=== PATIENT | female | born 1950 | race Caucasian/White ===

== ENCOUNTER 2023-06-03 20:00 | Outpatient (CLI) | payer OTHER, SELFPAY | END 2023-06-03 20:01 | disposition home or self-care (01) | LOC: SLEEP 06-04 06:22 | PROVIDERS: PCP Family Medicine Adult Medicine; Visit Provider Electrodiagnostic Medicine | DX: G47.10 Hypersomnia, unspecified (principal); G47.33 Obstructive sleep apnea (adult) (pediatric); G47.36 Sleep related hypoventilation in conditions classified elsewhere | CPT/HCPCS: 95810 ==

== ENCOUNTER 2023-08-27 17:28 | Observation (INO) | payer MEDICARE, SELFPAY ==
[2023-08-27] VITALS (11 sets, daily range): BP systolic 115–145; BP diastolic 48–67; PULSE 73–84; RESP 16–17; TEMP 36.7; O2SAT 90–96; BMI 30.9
--- NOTE | 2023-08-27 17:36 | XRR_ITS ---
PROCEDURE INFORMATION: Exam: XR Chest Exam date and time: 08/27/2023 5:48 PM Age: 72 years old Clinical indication: Shortness of breath; Additional info: Fever TECHNIQUE: Imaging protocol: Radiologic exam of the chest. Views: 1 view. COMPARISON: No relevant prior studies available. FINDINGS: Lungs: The lungs are clear. No pulmonary consolidation. Pleural spaces: No pleural effusion or pneumothorax. Heart/Mediastinum: Heart size is within normal limits. Vasculature: Atherosclerotic calcifications of the aorta are noted. Bones/joints: No acute osseous abnormalities are seen. XR/XR chest 1V portable [id number] IMPRESSION: No acute cardiopulmonary disease.
--- NOTE | 2023-08-27 17:44 | ECG_ITS ---
[facility] Test Date: 2023-08-27 Pat Name: Coty Huddleston Department: Room: 251 Gender: Female Manager Environmental Affairs: : 1950 Requested By: Blanca Thomason Order Number: [id number] Scottie MD: Fernando Meraz M.D. Measurements Intervals [place] Rate: 81 P: 19 UT: 151 QRS: -9 QRSD: 92 T: 3 QT: 337 QTc: 392 Interpretive Statements SINUS RHYTHM LOW QRS VOLTAGE IN PRECORDIAL LEADS [QRS DEFLECTION < 1.0 mV IN CHEST LEADS] POSSIBLE RIGHT VENTRICULAR CONDUCTION DELAY [RSR (QR) IN V1/V2] POSSIBLE ANTERIOR MYOCARDIAL INFARCTION , PROBABLY OLD [30 ms Q WAVE IN V3/V4, OR R < 0.2 mV IN V4] No previous ECG available for comparison Electronically Signed On 08-28-2023 7:01:59 CDT by Fernando Meraz M.D. [id number]
[2023-08-27 17:47] LABS: Basophils % 0.5 %; Eosinophils # 0.3 10^3/uL (0.0-0.8); Eosinophils % 3.3 %; Hematocrit 30.5 % (36-47); Lymphocytes % 12.5 %; Mean Corpuscular HGB Conc 31.8 g/dL (30-55); Mean Corpuscular Hemoglobin 29.8 pg (27-33); Mean Corpuscular Volume 93.6 fl (85-98); Mean Platelet Volume 8.8 fL (7.4-10.4); Monocytes # 0.8 10^3/uL (0.2-0.9); Monocytes % 10.2 %; Neutrophils # 5.83 10^3/uL (1.8-7.7); Neutrophils % 73.1 %; Nucleated Red Blood Cells % 0 %; Platelet Count 220 10^3/cmm (157-399); Red Blood Count 3.26 10^6/uL (3.85-5.65); Red Cell Distribution Width 13.6 % (12.1-15.1); White Blood Count 7.97 10^3/uL (3.29-11.43)
--- NOTE | 2023-08-27 17:48 | ED_ITS ---
HPI - Altered Mental Status 2 General: Chief Complaint: Altered Mental Status Stated Complaint: ams Time Seen by Provider: 08/27/23 17:32 Source: patient and EMS Mode of arrival: EMS Limitations: no limitations History of Present Illness: 72-year-old female who is here from home for concerns of some slight confusion along with some hypoxia as well. Patient had a knee replacement on her left knee on Thursday supposed with low-grade fevers at home she is afebrile here. She denies any cough or shortness of breath but is requiring 4 L of oxygen here states she only wears oxygen at night not typically during the day. He does have some pain in that left knee denies any drainage has some slight redness Review of Systems 2 Const: Denies: body aches or change in appetite ENMT: Denies: throat pain or dental pain Card: Denies: chest pain Resp: Reports: dyspnea GI: Denies: abdominal pain, nausea, vomiting or diarrhea : Denies: dysuria Musc: Denies: neck pain or back pain Skin/Breast: Denies: rash Neuro: Reports: confusion; Denies: headache(s) PFSH ED 2 PFSH: Medical History Insomnia Urge incontinence Diverticulitis CAD (coronary artery disease) HTN (hypertension) with goal to be determined Hypothyroid High cholesterol Meniere disease Bursitis Normal colonoscopy Surgical History History of bladder suspension procedure prolapsed uterus S/P removal of right ovary History of ankle surgery Family History (Updated 10/29/22 @ 14:29 by Libia Crawford LPN) Father Diabetes Stroke Mother FH: mental illness Social History Smoking and tobacco/nicotine status: former use of tobacco/nicotine Quit status (tobacco/nicotine): has quit using Second hand smoke exposure: No Alcohol intake: current Alcohol intake frequency: few times a month Alcohol type: beer Substance/Drug Use: current Substance/Drug use frequency: daily Physical Exam 2 Const: COMMON NORMALS: patient oriented x3 HENMT: COMMON NORMALS: normocephalic and atraumatic HEAD & SCALP: n ormocephalic and atraumatic Eye: COMMON NORMALS: conjunctivae normal CONJUNCTIVA: Yes conjunctivae normal Neck/C-Spine: COMMON NORMALS: full ROM and supple Chest: COMMONS NORMALS: normal inspection of the chest and normal palpation of entire chest wall Resp: COMMON NORMALS: normal respiratory effort, No retractions, No use of accessory muscles and clear to auscultation bilaterally AUSCULTATION: clear to auscultation bilaterally Cardio: COMMON NORMALS: regular rate, regular rhythm and No murmurs present (Cardio) RATE: regular rate RHYTHM: regular rhythm GI: COMMON NORMALS: Normal to inspection, nondistended, normoactive bowel sounds present, Soft to palpation, non-tender and no masses PALPATION: Yes Soft to palpation Extremity: COMMON NORMALS: full ROM NARRATIVE EXTREMITY EXAM: Incision to left knee is clean dry intact slight erythema noted Neuro: COMMON NORMALS: patient oriented x3, moves all extremities and no focal motor deficits Psych: COMMON NORMALS: mental status grossly normal, Normal thought process present and cooperative THOUGHT PROCESS: Normal thought process present Skin: COMMON NORMALS: no rashes or lesions noted and no wounds GENERAL SKIN EXAM: no rashes or lesions noted Course 2 Vital Signs: Vital signs: Vital Signs Temperature 98.0 F 08/27/23 17:29 Pulse Rate 84 08/27/23 17:29 Respiratory Rate 17 08/27/23 18:35 Blood Pressure 121/67 08/27/23 17:29 Pulse Oximetry 92 08/27/23 17:29 Oxygen Delivery Me thod Nasal Cannula 08/27/23 17:29 Oxygen Flow Rate 4 08/27/23 17:29 MDM - Altered Mental Status Medical Decision Making Patient presents here with confusion at home she has not been confused here she can answer my questions appropriately she is short of breath and hypoxic here x- ray showed pulmonary edema versus a pneumonia her BNP is elevated likely pulmonary edema did start antibiotics and blood cultures will give Lasix she has no signs of postop knee infection spoke to the hospitalist will admit. Medical Records I reviewed the patient's medical records. Lab Data I reviewed the patient's lab results. 08/27/23 17:34 08/27/23 17:35 Radiology Impressions Chest X-Ray 08/27/23 17:36 IMPRESSION: No acute cardiopulmonary disease. Chest CTA 08/27/23 17:54 IMPRESSION: 1. No evidence of pulmonary embolism. 2. Mild diffuse interlobular septal thickening and ground-glass opacification . Nonspecific finding likely reflecting pulmonary edema. Atypical infection or chronic changes can have this appearance. 3. 5 mm right apical subpleural nodule. See comments section for Fleischner recommendations. 4. Other nonemergent findings above. COMMENTS: For patients at low risk (minimal or absent history of smoking and of other known risk factors), no routine follow-up is indicated. For patients at high risk (history of smoking or of other known risk factors), consider optional CT Chest at 12 months. (Reference: Jose) REFERENCES: Jose Sepulveda, et al. Guidelines for Management of Incidental Pulmonary Nodules Detected on CT Images: From the Fleischner Society 2017. Radiology. 2017;284(1):228-243. Head CT 08/27/23 17:54 IMPRESSION: No acute intracranial abnormality on CT. Further evaluation with MRI as clinically warranted if there is persistent clinical suspicion for early stroke or other significant intracranial abnormality. Laboratory Results WBC 7.97 10^3/uL (3.29-11.43) 08/27/23 17:34 RBC 3.26 10^6/uL (3.85-5.65) L 08/27/23 17:34 Hgb 9.70 g/dL (11.27-16.99) L 08/27/23 17:34 Hct 30.5 % (36-47) L 08/27/23 17:34 MCV 93.6 fl (85-98) 08/27/23 17:34 MCH 29.8 pg (27-33) 08/27/23 17:34 MCHC 31.8 g/dL (30-55) 08/27/23 17:34 RDW 13.6 % (12.1-15.1) 08/27/23 17:34 Plt Count 220 10^3/cmm (157-399) 08/27/23 17:34 MPV 8.8 fL (7.4-10.4) 08/27/23 17:34 Neut % (Auto) 73.1 % 08/27/23 17:34 Lymph % (Auto) 12.5 % 08/27/23 17:34 [place] % (Auto) 10.2 % 08/27/23 17:34 Eos % (Auto) 3.3 % 08/27/23 17:34 Baso % (Auto) 0.5 % 08/27/23 17:34 Neut # (Auto) 5.83 10^3/uL (1.8-7.7) 08/27/23 17:34 Lymph # (Auto) 1.0 10^3/uL (0.8-4.8) 08/27/23 17:34 [place] # (Auto) 0.8 10^3/uL (0.2-0.9) 08/27/23 17:34 Eos # (Auto) 0.3 10^3/uL (0.0-0.8) 08/27/23 17:34 Baso # (Auto) 0.0 10^3/uL (0.0-0.1) 08/27/23 17:34 Nucleated RBC % (auto) 0 % 08/27/23 17:34 Nucleated RBCs # 0.0 /100WBC 08/27/23 17:34 ESR 26 mm/hr (0-15) H 08/27/23 17:34 PT 13.70 SECONDS (12.1-14.9) 08/27/23 17:35 INR 1.02 (0.8-1.2) 08/27/23 17:35 Sodium 135 mmol/L (136-145) L 08/27/23 17:35 Potassium 4.9 mmol/L (3.5-5.1) 08/27/23 17:35 Chloride 98 mmol/L (98-107) 08/27/23 17:35 Carbon Dioxide 29 mmol/L (22-29) 08/27/23 17:35 Anion Gap 12.9 (5-19) 08/27/23 17:35 BUN 26 mg/dL (8-23) H 08/27/23 17:35 Creatinine 0.9 mg/dL (0.5-0.9) 08/27/23 17:35 GFR Calculation Not Reportable 08/27/23 17:35 Glucose 93 mg/dL (65-115) 08/27/23 17:35 Calculated Osmolality 284 mOsm/kg (285-295) L 08/27/23 17:35 Lactic Acid 0.7 mmol/L (0.5-2.2) 08/27/23 17:35 Calcium 8.7 mg/dL (8.5-10.5) 08/27/23 17:35 Total Bilirubin 0.7 mg/dL (0.15-1.2) 08/27/23 17:35 AST 20 U/L (0-32) 08/27/23 17:35 ALT 12 U/L (0-33) 08/27/23 17:35 Alkaline Phosphatase 69 U/L (35-105) 08/27/23 17:35 C-Reactive Protein 99.0 mg/L (0.0-4.9) H 08/27/23 17:35 NT-Pro-B Natriuret Pep 4074 pg/mL (0-125) H 08/27/23 17:35 Total Protein 6.5 g/dL (6.6-8.7) L 08/27/23 17:35 Albumin 3.5 g/dL (3.5-5.2) 08/27/23 17:35 Globulin 3.0 g/dL (1.3-4.6) 08/27/23 17:35 All radiology interpretation(s) finalized by discharge EKG Data EKG 1: I personally reviewed and interpreted this EKG as follows: EKG interpretation date: 08/27/23 EKG interpretation time: 17:44 Interpretation: nsr hr [address] elevation qrs 92 qtc 374 Discharge Plan Discharge Condition: Stable Prescriptions: No Action metoprolol succinate 25 mg tablet extended release 24 hr 25 mg PO DAILY aspirin 81 mg tablet,delayed release (DR/EC) 81 mg PO DAILY ranolazine 500 mg tablet extended release 12 hr 500 mg PO BID lisinopril 10 mg tablet 10 mg PO DAILY escitalopram oxalate 20 mg tablet 30 mg PO DAILY oxybutynin chloride 5 mg tablet extended release 24hr 5 mg PO DAILY atorvastatin 20 mg tablet 20 mg PO DAILY levothyroxine 100 mcg tablet 100 mcg PO DAILY esomeprazole magnesium 20 mg capsule,delayed release(DR/EC) 20 mg PO DAILY PRN cetirizine [Aller-Jaki] 10 mg tablet 10 mg PO DAILY PRN acetaminophen [Tylenol Extra Strength] 500 mg tablet 500 mg PO Q6H PRN Centrum Silver Women 8 mg iron-400 mcg-50 mcg tablet 1 tab PO DAILY ijjltozy-ymii-alcne-oreg-capry 100 mg-150 mg- 50 mg-150 mg capsule PO magnesium citrate 100 mg capsule 100 mg PO DAILY doxepin 25 mg capsule 25 mg PO .qhs PRN (Reason: sleep) Qty: 30 3RF Referrals: Obdulio Alvarez MD [Primary Care Provider] - Patient Instructions: Altered Mental Status (ED) Coding Level of Care Code ED [employer] for [employer] José
--- NOTE | 2023-08-27 17:54 | CTR_ITS ---
PROCEDURE INFORMATION: Exam: CT Head Without Contrast Exam date and time: 08/27/2023 6:46 PM Age: 72 years old Clinical indication: Altered mental status/memory loss; Additional info: AMS TECHNIQUE: Imaging protocol: Computed tomography of the head without contrast. Radiation optimization: All CT scans at this facility use at least one of these dose optimization techniques: automated exposure control; mA and/or kV adjustment per patient size (includes targeted exams where dose is matched to clinical indication); or iterative reconstruction. COMPARISON: No relevant prior studies available. RADIATION DOSE METRICS: Total DLP (mGy-cm): 1158.48 FINDINGS: Brain: Mild diffuse cerebral parenchymal atrophy and chronic microvascular parenchymal change. No hemorrhage. Unremarkable white matter. No mass effect. Cerebral ventricles: No ventriculomegaly. Paranasal sinuses: Visualized sinuses are unremarkable. No fluid levels. Mastoid air cells: Visualized mastoid air cells are well aerated. Bones: Unremarkable. No acute fracture. Soft tissues: Unremarkable. CT/CT head wo con* [id number] IMPRESSION: No acute intracranial abnormality on CT. Further evaluation with MRI as clinically warranted if there is persistent clinical suspicion for early stroke or other significant intracranial abnormality.
--- NOTE | 2023-08-27 17:54 | CTR_ITS ---
PROCEDURE INFORMATION: Exam: CTA Chest With Contrast Exam date and time: 08/27/2023 6:51 PM Age: 72 years old Clinical indication: Dyspnea; Additional info: SOB TECHNIQUE: Imaging protocol: Computed tomographic angiography of the chest with contrast. Exam focused on the arteries. 3D rendering (Not supervised by radiologist): MIP and/or 3D reconstructed images were created by the technologist. Radiation optimization: All CT scans at this facility use at least one of these dose optimization techniques: automated exposure control; mA and/or kV adjustment per patient size (includes targeted exams where dose is matched to clinical indication); or iterative reconstruction. Contrast material: OMNI 350; Contrast volume: 92 ml; Contrast route: INTRAVENOUS (IV); COMPARISON: CR (CHEST, ) 08/27/2023 5:48 PM RADIATION DOSE METRICS: Total DLP (mGy-cm): 485.85 FINDINGS: Limitations: Moderate breathing artifact. Pulmonary arteries: Pulmonary arteries are adequately evaluated to the proximal segmental level. Breathing artifact limits more distal evaluation. No filling defects are identified to suggest pulmonary artery embolism. Main pulmonary artery is normal in size. There is no evidence of right heart strain. Aorta: Atherosclerotic calcifications of the aorta are present. No aneurysm is identified. Lungs: Moderate dependent changes in the posterior lower lobes. Evaluation of the pulmonary parenchyma is limited breathing artifact. Mild diffuse interlobular septal thickening and ground-glass opacification . 5 mm right apical subpleural nodule. 5 mm angular nodule abutting the minor fissure most consistent with an intra fissural lymph node. Pleural spaces: No pleural effusion or pneumothorax. Heart: Mild cardiomegaly. No pericardial effusion or pericardial thickening. Coronary arteries: No coronary artery calcification. Lymph nodes: Multiple prominent mediastinal and bilateral hilar lymph nodes. Bones/joints: No acute osseous abnormalities are seen. Soft tissues: Bilateral breast prostheses. The soft tissues are otherwise within normal limits. CT/CT angio chest PE protcl [id number] IMPRESSION: 1. No evidence of pulmonary embolism. 2. Mild diffuse interlobular septal thickening and ground-glass opacification . Nonspecific finding likely reflecting pulmonary edema. Atypical infection or chronic changes can have this appearance. 3. 5 mm right apical subpleural nodule. See comments section for Fleischner recommendations. 4. Other nonemergent findings above. COMMENTS: For patients at low risk (minimal or absent history of smoking and of other known risk factors), no routine follow-up is indicated. For patients at high risk (history of smoking or of other known risk factors), consider optional CT Chest at 12 months. (Reference: Jose) REFERENCES: Jose Sepulveda, et al. Guidelines for Management of Incidental Pulmonary Nodules Detected on CT Images: From the Fleischner Society 2017. Radiology. 2017;284(1):228-243.
[2023-08-27 18:00] LABS: INR 1.02 (0.8-1.2)
[2023-08-27 18:08] LABS: Erythrocyte Sedimentation Rate 26 mm/hr (0-15)
[2023-08-27 18:14] LABS: Alanine Aminotransferase 12 U/L (0-33); Albumin Level 3.5 g/dL (3.5-5.2); Alkaline Phosphatase 69 U/L (35-105); Anion Gap 12.9 (5-19); Aspartate Amino Transferase 20 U/L (0-32); Blood Urea Nitrogen 26 mg/dL (8-23); Calcium 8.7 mg/dL (8.5-10.5); Carbon Dioxide 29 mmol/L (22-29); Chloride 98 mmol/L (98-107); Creatinine Clr Calc Pharmacy 59.2644; Glucose 93 mg/dL (65-115); Osmolality Calculated 284 mOsm/kg (285-295); Potassium 4.9 mmol/L (3.5-5.1); Sodium 135 mmol/L (136-145); Total Bilirubin 0.7 mg/dL (0.15-1.2); Total Protein 6.5 g/dL (6.6-8.7)
[2023-08-27 18:15] LABS: Lactic Sepsis W/Reflex 0.7 mmol/L (0.5-2.2)
[2023-08-27] MEDS: morphine 4 mg/mL SDV 1 mL IVP ×2 (18:35→22:19)
[2023-08-27] MEDS: ondansetron 2 mg/ML SDV 2 mL 4 MG IVP ×2 (18:35→22:19)
[2023-08-27] MEDS: iohexol 350 mg/mL 500 mL Btl (per mL) IV (19:00)
[2023-08-27 20:05] LABS: NT Pro B Type Natriuretic Pept 4074 pg/mL (0-125)
[2023-08-27] MEDS: azithromycin 500 MG in sodium chloride 0.9% 250 ML 250 MG IV (20:08)
[2023-08-27] MEDS: cefTRIAXone 1,000 mg SDV 1000 MG IVP (20:08)
[2023-08-27] MEDS: FUROsemide 10 mg/mL SDV 4mL 40 MG IVP (20:58)
--- NOTE | 2023-08-27 21:01 | USR_ITS ---
PROCEDURE INFORMATION: Exam: US Duplex Lower Extremity Veins, Bilateral Exam date and time: 08/27/2023 9:49 PM Age: 72 years old Clinical indication: Pain; Leg, upper and leg, lower; Prior surgery; Surgery date: 3-7 days post-operative; Surgery type: Left total knee; Additional info: Swelling TECHNIQUE: Imaging protocol: Real-time duplex ultrasound of the bilateral extremities with 2-D moreno scale, color Doppler flow and spectral waveform analysis including responses to compression and other maneuvers (when performed) with image documentation. Complete exam focused on the lower extremity veins. COMPARISON: CT knee LT wo con* [id number] 08/27/2023 9:43 PM FINDINGS: Right deep veins: Unremarkable. The common femoral, femoral, proximal profunda femoral and popliteal and posterior tibial veins are patent without thrombus. Normal Doppler waveforms. Normal compressibility and/or augmentation response. Left deep veins: Unremarkable. The common femoral, femoral, proximal profunda femoral and popliteal and posterior tibial veins are patent without thrombus. Normal Doppler waveforms. Normal compressibility and/or augmentation response. Superficial veins: Greater saphenous veins at the saphenofemoral junctions are patent bilaterally without thrombus. Soft tissues: Unremarkable. US/[place] [id number] IMPRESSION: No evidence of deep vein thrombosis in the examined venous segments of the right and left lower extremities.
--- NOTE | 2023-08-27 21:03 | P.HP_ITS ---
Providers/Chief Complaint 2 Primary Care Provider: Obdulio Alvarez MD Chief Complaint: ams History of Present Illness Coty Huddleston is a 72 year old female who recently had left knee surgery at [facility], presented today with chief complaint of altered mental status. Daughter was concerned if she had altered mental status with confusion secondary to use of opioids. When patient was brought in she was hypoxic required 4 L of nasal cannula to keep her oxygen saturation above 90%, x-ray showed congestive heart failure related pulm edema, CTA rule out PE, patient is afebrile, she has been given ceftriaxone azithromycin along Lasix. Patient is not able to recall events from home but stating there is no active chest pain shortness of breath or confusion she is not endorsing any knee pain at this point, Solano catheter has been placed. I have requested CT scan of left knee with contrast and venous Doppler lower extremity Currently at the time of evaluation she is normotensive with 3 L of nasal cannula saturating 95% Review of Systems 2 Const: Reports: fever(s) and chills Eyes: Denies: change in vision ENMT: Denies: throat pain Card: Denies: chest pain Resp: Denies: dyspnea GI: Denies: abdominal pain : Denies: flank pain Musc: Reports: extremity pain and joint pain; Denies: neck pain Skin/Breast: Reports: rash Medications/Allergies Home Medications Medication Instructions Recorded Confirmed Last Taken Type acetaminophen 500 mg tablet 500 mg PO Q6H PRN 10/29/22 10/29/22 Unknown History (Tylenol Extra Strength) aspirin 81 mg tablet,delayed 81 mg PO DAILY 10/29/22 10/29/22 Unknown History release atorvastatin 20 mg tablet 20 mg PO DAILY 10/29/22 10/29/22 Unknown History cetirizine 10 mg tablet (Aller-Jaki) 10 mg PO DAILY PRN 10/29/22 10/29/22 Unknown History escitalopram oxalate 20 mg tablet 30 mg PO DAILY 10/29/22 10/29/22 Unknown History esomeprazole magnesium 20 mg 20 mg PO DAILY PRN 10/29/22 10/29/22 Unknown History capsule,delayed release levothyroxine 100 mcg tablet 100 mcg PO DAILY 10/29/22 10/29/22 Unknown History lisinopril 10 mg tablet 10 mg PO DAILY 10/29/22 10/29/22 Unknown History magnesium citrate 100 mg capsule 100 mg PO DAILY 10/29/22 10/29/22 Unknown History metoprolol succinate 25 mg 25 mg PO DAILY 10/29/22 10/29/22 Unknown History tablet,extended release 24 hr kiwjnudr-xbtv-kpbz 8 mg-folic 400 1 tab PO DAILY 10/29/22 10/29/22 Unknown History mcg-K 50 mcg-lutein 300 mcg tablet (Centrum Silver Women) oxybutynin chloride 5 mg 5 mg PO DAILY 10/29/22 10/29/22 Unknown History tablet,extended release 24 hr ranolazine 500 mg tablet,extended 500 mg PO BID 10/29/22 10/29/22 Unknown History release,12 hr turmeric 100 mg-marcos 150 cap PO 10/29/22 10/29/22 Unknown History mg-olive 50 mg-oreg 150 mg-capryl capsule doxepin 25 mg capsule 25 mg PO .qhs PRN sleep #30 caps 12/03/22 Unknown Rx Allergies Allergy/AdvReac Type Severity Reaction Status Date / Time phentermine Allergy Unknown Verified 08/27/23 17:48 arithromycin Allergy makes her Uncoded 08/27/23 17:47 throw up morphine Allergy vomit Uncoded 08/27/23 17:47 PFSH Acute 2 PFSH: Medical History Insomnia Urge incontinence Diverticulitis CAD (coronary artery disease) HTN (hypertension) with goal to be determined Hypothyroid High cholesterol Meniere disease Bursitis Normal colonoscopy Surgical History History of bladder suspension procedure prolapsed uterus S/P removal of right ovary History of ankle surgery Family History Father Diabetes Stroke Mother FH: mental illness Social History Smoking and tobacco/nicotine status: former use of tobacco/nicotine Quit status (tobacco/nicotine): has quit using Second hand smoke exposure: No Alcohol intake: current Alcohol intake frequency: few times a month Alcohol type: beer Substance/Drug Use: current Substance/Drug use frequency: daily Vitals/I&O/Wt Last Vital Signs Temp 98.0 F 08/27/23 17:29 Pulse 84 08/27/23 17:29 Resp 17 08/27/23 18:35 BP 121/67 08/27/23 17:29 Pulse Ox 92 08/27/23 17:29 O2 Del Method Nasal Cannula 08/27/23 17:29 O2 Flow Rate 4 08/27/23 17:29 Weight last 48 hrs Weight 81.647 kg Physical Exam 2 Narrative: Patient currently on 3 L nasal cannula Normotensive Mild signs of fluid overload GCS 15 Left knee recent surgical scar mirela present No active sign of cellulitis Patient is awake and alert Nonfocal neuroexam S1, S2 Abdomen soft Data 08/27/23 17:34 08/27/23 17:35 A&P Assessment and plan (1) New onset of congestive heart failure: (2) HTN (hypertension) with goal to be determined: (3) Hypothyroid: (4) Meniere disease: (5) Urge incontinence: (6) Insomnia: (7) Hypoxia: (8) AMS (altered mental status): Plan Acute hypoxia related to new onset CHF Requested echo Start IV Lasix Solano catheter placed No active chest pain Requested serial troponin EKG Requested weaning oxygen to room air Currently she is on 3 L, Recent left knee surgery, will request CT scan of left knee with contrast As per the daughter there was fever at home Daughter not present at the time of evaluation Information taken from the ER physician Acute acquired pneumonia Start antibiotics ceftriaxone and doxycycline Patient is afebrile, no leukocytosis no sign of sepsis Confusion: Could be related to use of opioids NIH 0 No sign of stroke CT head unremarkable CT rule out PE Full code Cardiac Solano catheter placed DVT prophylaxis on board Attestations 2 Medical Necessity Statement*: Anticipating more than 2 midnights for management of hypoxia, altered mental status and new onset CHF Diagnoses New onset of congestive heart failure I50.9 HTN (hypertension) with goal to be determined I10 Hypothyroid E03.9 Meniere disease H81.09 Urge incontinence N39.41 Insomnia G47.00 Hypoxia R09.02 AMS (altered mental status) R41.82
[2023-08-27 21:10] LABS: Add Urine Microscopic? NO; Charge for UA Resulting for Rev
[2023-08-27 21:15] LABS: Bilirubin Urine Neg (Negative); Blood Urine Neg (Negative); Glucose Urine UA Norm (Normal); Ketones Urine 1+ (Negative); Leukocyte Esterase Urine Negative (Negative); Nitrate Urine Negative (Negative); Protein Urine Neg (Negative); Urine Appearance Clear (CLEAR); Urine Color Yellow (Yellow); Urobilinogen Urine Norm (Negative); pH Urine 5 (5-7)
--- NOTE | 2023-08-27 21:26 | CTR_ITS ---
PROCEDURE INFORMATION: Exam: CT Left Lower Extremity Without Contrast, Knee Exam date and time: 08/27/2023 9:43 PM Age: 72 years old Clinical indication: Swelling, leg or foot; Prior surgery; Surgery date: 3-7 days post-operative; Surgery type: Post op knee; Additional info: Recently surgery TECHNIQUE: Imaging protocol: CT of the left lower extremity without contrast was performed. Exam focused on the knee. Radiation optimization: All CT scans at this facility use at least one of these dose optimization techniques: automated exposure control; mA and/or kV adjustment per patient size (includes targeted exams where dose is matched to clinical indication); or iterative reconstruction. COMPARISON: CR XR knee LT 3V* [id number] 02/17/2023 12:22 PM RADIATION DOSE METRICS: Total DLP (mGy-cm): 439 FINDINGS: Tubes, catheters and devices: No evidence of arthroplasty hardware failure or loosening. No periprosthetic fracture. The right knee is partially imaged with moderate narrowing of the medial compartment. Bones/joints: Postsurgical changes in the anterior knee status post reported recent knee arthroplasty. Mild diffuse subcutaneous edema and dermal thickening likely postsurgical although reason for any evidence of cellulitis suggested. Small amount of soft tissue air in the proximal medial calf is likely an expected finding. Small joint effusion/hemarthrosis. Soft tissues: See Bones/joints finding. CT/CT knee LT wo con* [id number] IMPRESSION: 1. Soft tissue thickening around the knee likely postsurgical in the setting of reported recent arthroplasty. Clinical correlation for any evidence of superimposed cellulitis suggested as the imaging appearance could be similar. 2. No evidence of hardware failure or periprosthetic fracture. No large fluid collection or soft tissue hematoma. [id number] high-density joint effusion/hemarthrosis.
[2023-08-27 21:31] LABS: SARS Covid-2 Antigen negative (Negative)
[2023-08-27 21:38] LABS: Troponin(5th) Baseline 54 ng/L (0-10)
[2023-08-27 22:23] LABS: Thyroid Stimulating Hormone 2.24 uIU/mL (0.27-4.20)
--- NOTE | 2023-08-27 23:05 | ECG_ITS ---
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 Measurements Intervals [place] Rate: 76 P: 43 [place]: 148 QRS: -4 QRSD: 87 T: 3 QT: 380 QTc: 428 Interpretive Statements SINUS RHYTHM LOW QRS VOLTAGE IN PRECORDIAL LEADS [QRS DEFLECTION < 1.0 mV IN CHEST LEADS] POSSIBLE RIGHT VENTRICULAR CONDUCTION DELAY [RSR (QR) IN V1/V2] POSSIBLE ANTERIOR MYOCARDIAL INFARCTION , PROBABLY OLD [30 ms Q WAVE IN V3/V4, OR R < 0.2 mV IN V4] Compared to ECG 08/27/2023 17:44:00 No significant changes Electronically Signed On 08-28-2023 7:03:58 CDT by Fernando Meraz M.D. [id number]
[2023-08-27 23:25] LABS: Vitamin B12 386 pg/mL (232-1245)
[2023-08-28 00:13] LABS: Troponin 5 2HR 47.09 ng/L (0-10)
[2023-08-28 00:15] LABS: Troponin 5 2HR Delta -6.91 ABS# (0-10)
[2023-08-28] MEDS: doxycycline 100 mg Tablet PO (01:01)
[2023-08-28] MEDS: heparin 5,000 unit/mL INJ 1 mL 5000 UNIT SUBCUT (01:01)
[2023-08-28 01:02] VITALS: BMI 30.9
--- NOTE | 2023-08-28 01:24 | PC.NURSE ---
This nurse completed admission assessment and initial physical assessment. The patient is awake and opens her eyes spontaneously, can state her name and birthday and can state that she's in the hospital, although she gets confused about which hospital. Her speech is sometimes delayed and some responses need additional prompting. Admission assessment questions were answered by her daughter, who the patient currently lives with. The daughter understood all teaching and requested PT to come see the patient, as well as see about getting a CPAP shearing machine tender. Daughter states that the patient recently had a sleep study done here and was recommended a CPAP, but it hadn't been acquired yet. Daughter states the patient recently had a knee surgery at [facility] in [place]. There is a well approximated incision on the left knee covered with a strip of transparent tape. The surrounding tissue, including the posterior thigh, is bruised dark red/purple. There is non-pitting edema around the knee. The left lower extremity, from above the knee to foot, is noticeably hot in comparison with the right lower extremity. Both dorsalis pedis pulses are strong. The patient is currently saturating well on 4L nasal cannula, and does not appear short of breath. Crackles can be heard clearly in the bilateral lower lobs when listening posteriorly.
[2023-08-28 03:32] LABS: Hematocrit 32.5 % (36-47); Mean Corpuscular Hemoglobin 30.1 pg (27-33); Mean Corpuscular Volume 94.2 fl (85-98); Red Blood Count 3.45 10^6/uL (3.85-5.65); White Blood Count 9.82 10^3/uL (3.29-11.43)
[2023-08-28 03:33] LABS: Basophils # 0.1 10^3/uL (0.0-0.1); Basophils % 0.5 %; Eosinophils # 0.3 10^3/uL (0.0-0.8); Eosinophils % 2.9 %; Lymphocytes # 1.3 10^3/uL (0.8-4.8); Lymphocytes % 13.3 %; Mean Platelet Volume 8.7 fL (7.4-10.4); Monocytes % 10.2 %; Neutrophils # 7.15 10^3/uL (1.8-7.7); Neutrophils % 72.8 %; Platelet Count 308 10^3/cmm (157-399); Red Cell Distribution Width 13.6 % (12.1-15.1)
--- NOTE | 2023-08-28 03:41 | ECG_ITS ---
[facility] Test Date: 2023-08-28 Pat Name: Coty Huddleston Department: Room: 251 Gender: Female Adult Probation Officer: : 1950 Requested By: Carmella Montes Order Number: [id number] Scottie MD: Fernando Meraz M.D. Measurements Intervals [place] Rate: 95 P: 52 NV: 167 QRS: 2 QRSD: 86 T: 5 QT: 328 QTc: 413 Interpretive Statements SINUS RHYTHM LOW QRS VOLTAGE IN PRECORDIAL LEADS [QRS DEFLECTION < 1.0 mV IN CHEST LEADS] POSSIBLE RIGHT VENTRICULAR CONDUCTION DELAY [RSR (QR) IN V1/V2] POSSIBLE ANTERIOR MYOCARDIAL INFARCTION , PROBABLY OLD [30 ms Q WAVE IN V3/V4, OR R < 0.2 mV IN V4] Compared to ECG 08/27/2023 23:20:46 No significant changes Electronically Signed On 08-28-2023 7:02:25 CDT by Fernando Meraz M.D. [id number]
[2023-08-28 04:01] LABS: Troponin 5 6HR 46.92 ng/L (0-10); Troponin 5 6HR Delta -7.08 ng/L (0-12)
[2023-08-28 04:06] LABS: Sodium 136 mmol/L (136-145)
[2023-08-28 04:07] LABS: Anion Gap 19.2 (5-19); Blood Urea Nitrogen 21 mg/dL (8-23); C Reactive Protein 118.4 mg/L (0.0-4.9); Calcium 8.6 mg/dL (8.5-10.5); Carbon Dioxide 27 mmol/L (22-29); Chloride 94 mmol/L (98-107); Creatinine Clr Calc Pharmacy 53.3379; Glucose 80 mg/dL (65-115); Magnesium 2.3 mg/dL (1.7-2.3); Osmolality Calculated 284 mOsm/kg (285-295); Potassium 4.2 mmol/L (3.5-5.1)
[2023-08-28] MEDS: aspirin 81 mg EC Tablet PO (08:13)
[2023-08-28] MEDS: levothyroxine 100 mcg Tablet PO (08:14)
[2023-08-28] MEDS: sennosides-docusate Tablet 1 TAB PO (08:14)
[2023-08-28] MEDS: ranolazine (12HR) 500 mg Tablet PO (08:14)
[2023-08-28] MEDS: cefTRIAXone 1,000 MG in sodium chloride 0.9% (plus) 50 ML 100 MG IV (08:14)
[2023-08-28 08:38] VITALS: BP 135/77; PULSE 88; RESP 18; TEMP 37.1; O2SAT 97
[2023-08-28 08:50] VITALS: PULSE 79; O2SAT 94
[2023-08-28] MEDS: lisinopril 10 mg Tablet PO (09:33)
[2023-08-28] MEDS: HYDROcodone-acetaminophen 5-325 mg Tablet 1 TAB PO ×2 (09:33→13:43)
[2023-08-28] MEDS: metoprolol succinate ER (24 HR) 25 mg Tablet PO (09:33)
[2023-08-28] MEDS: FUROsemide 10 mg/mL SDV 10mL 40 MG IVP (09:33)
--- NOTE | 2023-08-28 10:26 | PM.DCS ---
Discharge Providers Date of Admission: 08/27/23 20:15 Date of Discharge: August 28, 2023 Attending Provider at Admission: Carmella Montes MD Attending Provider at Discharge: Carmella Montes MD Primary Care Provider: Obdulio Alvarez MD Diagnoses at Discharge Discharge Diagnosis (1) New onset of congestive heart failure: Status: Acute (2) HTN (hypertension) with goal to be determined: Status: Acute (3) Hypothyroid: Status: Acute (4) Meniere disease: Status: Acute (5) Urge incontinence: Status: Acute (6) Insomnia: Status: Acute (7) Hypoxia: Status: Acute (8) AMS (altered mental status): Status: Acute Reason for Visit Reason for Visit: ams Hospital Course Hospital Course 72 YO female with recent knee surgery came in wit CC of AMS which resolved in the ER, NIh 0, was deemed secondary to use of opiates and new oxygen requirement of 2 L for acute chf with underlying sleep apnea, echo revelaed preserved ef. Pt has sleep apnea and also completed sleep study which was ordred by Dr. Riggins. We would add levofloxacin and lasic along potassium at discharge. Pt has appointment for OP PT. [place] will be dc'd She is going home with stable hemodynamics CT left knee showed post surgical changes Physical Exam Narrative: awake alert GCS 15 S1 S2 ABD soft Discharge Data Studies Completed and Pending Completed Studies During Hospitalization Category Date Time Status CT head wo con* [id number] Stat Cat Scan 08/27/23 17:[address] knee LT wo con* [id number] Stat Cat Scan 08/27/23 21:26 Completed CTA chest [CT angio chest PE protcl [id number]] Stat Cat Scan 08/27/23 17:54 Completed XR chest 1V portable [id number] Stat Exams 08/27/23 17:36 [place] [id number] Routine Ultrasound 08/27/23 21:01 Completed Pending at discharge Category Date Time Status CV. echo complete* [id number] Routine Ultrasound 08/28/23 23:37 Taken Radiology Impressions Chest X-Ray 08/27/23 17:36 IMPRESSION: No acute cardiopulmonary disease. Chest CTA 08/27/23 17:54 IMPRESSION: 1. No evidence of pulmonary embolism. 2. Mild diffuse interlobular septal thickening and ground-glass opacification . Nonspecific finding likely reflecting pulmonary edema. Atypical infection or chronic changes can have this appearance. 3. 5 mm right apical subpleural nodule. See comments section for Fleischner recommendations. 4. Other nonemergent findings above. COMMENTS: For patients at low risk (minimal or absent history of smoking and of other known risk factors), no routine follow-up is indicated. For patients at high risk (history of smoking or of other known risk factors), consider optional CT Chest at 12 months. (Reference: Jose) REFERENCES: Jose Sepulveda, et al. Guidelines for Management of Incidental Pulmonary Nodules Detected on CT Images: From the Fleischner Society 2017. Radiology. 2017;284(1):228-243. Head CT 08/27/23 17:54 IMPRESSION: No acute intracranial abnormality on CT. Further evaluation with MRI as clinically warranted if there is persistent clinical suspicion for early stroke or other significant intracranial abnormality. Venous Duplex 08/27/23 21:01 IMPRESSION: No evidence of deep vein thrombosis in the examined venous segments of the right and left lower extremities. Knee CT 08/27/23 21:26 IMPRESSION: 1. Soft tissue thickening around the knee likely postsurgical in the setting of reported recent arthroplasty. Clinical correlation for any evidence of superimposed cellulitis suggested as the imaging appearance could be similar. 2. No evidence of hardware failure or periprosthetic fracture. No large fluid collection or soft tissue hematoma. [id number] high-density joint effusion/hemarthrosis. Laboratory Results WBC 9.82 10^3/uL (3.29-11.43) 08/28/23 03:10 RBC 3.45 10^6/uL (3.85-5.65) L 08/28/23 03:10 Hgb 10.40 g/dL (11.27-16.99) L 08/28/23 03:10 Hct 32.5 % (36-47) L 08/28/23 03:10 MCV 94.2 fl (85-98) 08/28/23 03:10 MCH 30.1 pg (27-33) 08/28/23 03:10 MCHC 32.0 g/dL (30-55) 08/28/23 03:10 RDW 13.6 % (12.1-15.1) 08/28/23 03:10 Plt Count 308 10^3/cmm (157-399) D 08/28/23 03:10 MPV 8.7 fL (7.4-10.4) 08/28/23 03:10 Neut % (Auto) 72.8 % 08/28/23 03:10 Lymph % (Auto) 13.3 % 08/28/23 03:10 [place] % (Auto) 10.2 % 08/28/23 03:10 Eos % (Auto) 2.9 % 08/28/23 03:10 Baso % (Auto) 0.5 % 08/28/23 03:10 Neut # (Auto) 7.15 10^3/uL (1.8-7.7) 08/28/23 03:10 Lymph # (Auto) 1.3 10^3/uL (0.8-4.8) 08/28/23 03:10 [place] # (Auto) 1.0 10^3/uL (0.2-0.9) H 08/28/23 03:10 Eos # (Auto) 0.3 10^3/uL (0.0-0.8) 08/28/23 03:10 Baso # (Auto) 0.1 10^3/uL (0.0-0.1) 08/28/23 03:10 Nucleated RBC % (auto) 0 % 08/27/23 17:34 Nucleated RBCs # 0.0 /100WBC 08/27/23 17:34 ESR 26 mm/hr (0-15) H 08/27/23 17:34 PT 13.70 SECONDS (12.1-14.9) 08/27/23 17:35 INR 1.02 (0.8-1.2) 08/27/23 17:35 Sodium 136 mmol/L (136-145) 08/28/23 03:10 Potassium 4.2 mmol/L (3.5-5.1) 08/28/23 03:10 Chloride 94 mmol/L (98-107) L 08/28/23 03:10 Carbon Dioxide 27 mmol/L (22-29) 08/28/23 03:10 Anion Gap 19.2 (5-19) H 08/28/23 03:10 BUN 21 mg/dL (8-23) 08/28/23 03:10 Creatinine 1.0 mg/dL (0.5-0.9) H 08/28/23 03:10 GFR Calculation Not Reportable 08/28/23 03:10 Glucose 80 mg/dL (65-115) 08/28/23 03:10 Calculated Osmolality 284 mOsm/kg (285-295) L 08/28/23 03:10 Lactic Acid 0.7 mmol/L (0.5-2.2) 08/27/23 17:35 Calcium 8.6 mg/dL (8.5-10.5) 08/28/23 03:10 Magnesium 2.3 mg/dL (1.7-2.3) 08/28/23 03:10 Total Bilirubin 0.7 mg/dL (0.15-1.2) 08/27/23 17:35 AST 20 U/L (0-32) 08/27/23 17:35 ALT 12 U/L (0-33) 08/27/23 17:35 Alkaline Phosphatase 69 U/L (35-105) 08/27/23 17:35 Troponin T Baseline 54 ng/L (0-10) H 08/27/23 21:16 Troponin T 120 Minute 47.09 ng/L (0-10) H 08/27/23 23:16 Delta Troponin T -6.91 ABS# (0-10) L 08/27/23 23:16 Troponin T Hi Sens 6Hr 46.92 ng/L (0-10) H 08/28/23 03:10 Troponin T Hi Sens 6Hr Delta -7.08 ng/L (0-12) L 08/28/23 03:10 C-Reactive Protein 118.4 mg/L (0.0-4.9) H 08/28/23 03:10 NT-Pro-B Natriuret Pep 4074 pg/mL (0-125) H 08/27/23 17:35 Total Protein 6.5 g/dL (6.6-8.7) L 08/27/23 17:35 Albumin 3.5 g/dL (3.5-5.2) 08/27/23 17:35 Globulin 3.0 g/dL (1.3-4.6) 08/27/23 17:35 Vitamin B12 386 pg/mL (232-1245) 08/27/23 21:16 TSH 2.24 uIU/mL (0.27-4.20) 08/27/23 21:16 Urine Color Yellow (Yellow) 08/27/23 21:07 Urine Appearance Clear (CLEAR) 08/27/23 21:07 Urine pH 5 (5-7) 08/27/23 21:07 Ur Specific [place] 1.020 (1.005-1.030) 08/27/23 21:07 Urine Protein Neg (Negative) 08/27/23 21:07 Urine Glucose (UA) Norm (Normal) 08/27/23 21:07 Urine Ketones 1+ (Negative) H 08/27/23 21:07 Urine Blood Neg (Negative) 08/27/23 21:07 Urine Nitrate Negative (Negative) 08/27/23 21:07 Urine Bilirubin Neg (Negative) 08/27/23 21:07 Urine Urobilinogen Norm mg/dL (Negative) 08/27/23 21:07 Ur Leukocyte Esterase Negative (Negative) 08/27/23 21:07 SARS-CoV-2 Ag (Rapid) negative (Negative) 08/27/23 21:09 Vitals Last Vital Signs Temp 98.8 F 08/28/23 08:38 Pulse 79 08/28/23 08:50 Resp 18 08/28/23 08:38 BP 135/77 08/28/23 08:38 Pulse Ox 94 08/28/23 08:50 O2 Del Method Nasal Cannula 08/28/23 08:50 O2 Flow Rate 2 08/28/23 08:50 Discharge Plan Discharge Patient Disposition: Home Condition: Stable Prescriptions: New furosemide [Lasix] 20 mg tablet 20 mg PO DAILY PRN (Reason: weight gain) Qty: 60 1RF Rx Instructions: take as needed for shortness of breath or weight gain>3lbs in 24 hrs potassium chloride 10 mEq tablet extended release 10 meq PO DAILY PRN (Reason: with lasix only) Qty: 30 0RF levofloxacin 750 mg tablet 750 mg PO DAILY 7 Days Qty: 7 0RF Continued metoprolol succinate 25 mg tablet extended release 24 hr 25 mg PO DAILY aspirin 81 mg tablet,delayed release (DR/EC) 81 mg PO DAILY ranolazine 500 mg tablet extended release 12 hr 500 mg PO BID lisinopril 10 mg tablet 10 mg PO DAILY levothyroxine 100 mcg tablet 100 mcg PO DAILY esomeprazole magnesium 20 mg capsule,delayed release(DR/EC) 20 mg PO DAILY PRN (Reason: Acid Reflux) cetirizine [Aller-Jaki] 10 mg tablet 10 mg PO DAILY PRN (Reason: ALLERGIES) acetaminophen [Tylenol Extra Strength] 500 mg tablet 500 mg PO Q6H PRN (Reason: Pain) Centrum Silver Women 8 mg iron-400 mcg-50 mcg tablet 1 tab PO DAILY magnesium citrate 100 mg capsule 100 mg PO DAILY PRN (Reason: Constipation) atorvastatin 40 mg tablet 40 mg PO DAILY venlafaxine 150 mg capsule,extended release 24hr 150 mg PO DAILY ondansetron 8 mg tablet,disintegrating 8 mg PO TID PRN (Reason: Nausea) temazepam 30 mg capsule 30 mg PO BEDTIME ergocalciferol (vitamin D2) 1,250 mcg (50,000 unit) capsule 1,250 mcg PO Q7D Discontinued oxybutynin chloride 5 mg tablet extended release 24hr 5 mg PO QPM oxycodone 10 mg tablet 10 mg PO Q4H PRN (Reason: Pain) Discharge Orders: Discharge Order (Routine); Ordered 08/28/23 Ordered By: Carmella Montes Referrals: Obdulio Alvarez MD [Primary Care Provider] - 09/09/23 10:15 am Discharge Diet: Cardiac Patient Instructions: Altered Mental Status (ED), Opioid Safety Activity Restrictions/Additional Instructions: lasix is what we have started for chf : which is a water pill if you think you are getting dehydrated you can skip the dose For next 3-4 days take daily then take as needed take potassium to replenish potassuim with lasix only take potassuim when you take lasix Discharge Attestations Time Spent in Discharge Care*: greater than 30 min Quality Metrics Clinical Quality Measures [ No reported AMI, CVA or VTE this stay] Coding Level of Care Code Acute Code for Chg Fwd Diagnoses New onset of congestive heart failure I50.9 HTN (hypertension) with goal to be determined I10 Hypothyroid E03.9 Meniere disease H81.09 Urge incontinence N39.41 Insomnia G47.00 Hypoxia R09.02 AMS (altered mental status) R41.82
--- NOTE | 2023-08-28 11:41 | PC.SOCIAL ---
IMM Updated Updated pt & family on IMM. No questions voiced. Provided pt a copy. Initialed, dated, & timed copy in chart.
[2023-08-28 11:54] VITALS: BP 105/66; PULSE 79; RESP 16; TEMP 37; O2SAT 92
[2023-08-28 12:07] VITALS: O2SAT 86
--- NOTE | 2023-08-28 23:37 | USCV_ITS ---
Coty Huddleston Age: 72 Gender: F : 1950 Exam Date: 08/28/2023 09:40 Ordering Phys: Carmella Montes MD Technologist: [place] [facility] [place]: CHF BP: 130 / 77 HR: 88 Rhythm: Sinus Technical Quality: Adequate MEASUREMENTS (Male / Female) Normal Values 2D ECHO LVOT Diameter 2.1 cm LV Ejection Fraction MOD 4C 69.3 % LV Ejection Fraction MOD 2C 64.1 % LV Ejection Fraction 2C AL 63.6 % LA Diameter 3.9 cm RA Systolic Volume 4C AL 36.4 ml RA Systolic Volume 4C MOD 33.7 ml LA Sys Volume AL 73.0 cm cubed LA Sys Volume Index AL 37.4 cm cubed/m squared Aorta at Sinotubular Diameter 2.3 cm M-MODE LA Ao Ratio MM 1.1 AV Cusp Separation MM 2.6 cm DOPPLER AV Peak Velocity 347.7 cm/s LVOT Peak Velocity 185.0 cm/s AV Area Cont Eq vti 3.2 cm squared AV Area Cont Eq pk 1.9 cm squared MV Peak Velocity 118.0 cm/s MV Area PHT 3.9 cm squared Mitral E to A Ratio 0.9 TR Peak Velocity 331.5 cm/s TR Peak Gradient 44.0 mmHg TR Mean Velocity 281.0 cm/s TR Mean Gradient 34.1 mmHg TR Velocity Time Integral 98.2 cm TV Peak E Velocity 104.0 cm/s Right Atrial Pressure 3.0 mmHg Pulmonary Artery Systolic Pressu 47.0 mmHg PV Peak Velocity 112.0 cm/s FINDINGS Left Ventricle Normal left ventricular size, systolic function and wall thickness, with no regional wall motion abnormalities. Grade I/IV diastolic dysfunction (abnormal relaxation filling pattern), normal to mildly elevated filling pressures. Left ventricular ejection fraction is estimated at 60 %. Right Ventricle Normal right ventricular size and systolic function. Mild pulmonary hypertension, RVSP 47 mmHg. Right Atrium The right atrium is normal in size. Left Atrium The left atrium is normal in size. Mitral Valve Structurally normal mitral valve without significant stenosis or prolapse. There is no mitral regurgitation. Aortic Valve Structurally normal trileaflet aortic valve. Mild aortic valve regurgitation. No aortic valve stenosis. Tricuspid Valve Structurally normal tricuspid valve. Trace tricuspid valve regurgitation. Pulmonic Valve Pulmonic valve not well visualized. Pericardium Normal pericardium without effusion. Aorta Normal ascending aorta dimension. IVC The inferior vena cava appears normal. CONCLUSIONS Normal left ventricular size, systolic function and wall thickness, with no regional wall motion abnormalities. Grade I/IV diastolic dysfunction (abnormal relaxation filling pattern), normal to mildly elevated filling pressures. Left ventricular ejection fraction is estimated at 60 %. Normal right ventricular size and systolic function. Mild pulmonary hypertension, RVSP 47 mmHg. Structurally normal trileaflet aortic valve. Mild aortic valve regurgitation. No aortic valve stenosis. There are no prior echocardiogram studies to compare. Dr. Prieto Eli MD (Electronically Signed) Final Date: 28 August 2023 15:33 S
== END 2023-08-28 14:57 | disposition home or self-care (01) ==
LOC: ER 21:33 → MEDSURG 08-28 00:07
PROVIDERS: Admitting Provider Internal Medicine; Emergency Provider Emergency Medicine; PCP Family Medicine Adult Medicine; Visit Provider Internal Medicine
DX: R41.82 Altered mental status, unspecified (principal); R09.02 Hypoxemia; G47.00 Insomnia, unspecified; N39.41 Urge incontinence; H81.09 Meniere's disease, unspecified ear; E03.9 Hypothyroidism, unspecified; I11.0 Hypertensive heart disease with heart failure; I50.9 Heart failure, unspecified; Z79.891 Long term (current) use of opiate analgesic; I10 Essential (primary) hypertension; Z87.891 Personal history of nicotine dependence; I25.10 Atherosclerotic heart disease of native coronary artery without angina pectoris
CPT/HCPCS: 36415; 70450; 71045; 71275; 73700; 80048; 80053; 81003; 82607; 83605; 83735; 83880; 84443; 84484; 85025; 85610; 85651; 86140; 87426; 93005; 93306; 93970; 94760; 96365; 96372; 96375; 96376; 97110; 97116; 97161; 99285; G0378; J0456; J0696; J1644; J1940; J2270; J2405; J7050; Q9967

== ENCOUNTER 2023-10-03 06:22 | Emergency (ER) | payer MEDICARE, SELFPAY ==
--- NOTE | 2023-10-03 06:29 | XRR_ITS ---
PROCEDURE INFORMATION: Exam: XR Left Ankle Exam date and time: 10/03/2023 7:25 AM Age: 72 years old Clinical indication: Pain; Ankle; Left; Additional info: Trauma TECHNIQUE: Imaging protocol: Radiologic exam of the left ankle. Views: 3 or more views. COMPARISON: [place] [id number] 08/27/2023 9:49 PM FINDINGS: Bones/joints: Small ankle joint effusion. Achilles enthesophyte. Soft tissues: Mild soft swelling overlying the lateral malleolus. XR/XR ankle LT min 3V* [id number] IMPRESSION: No acute fracture or dislocation.
[2023-10-03 06:31] VITALS: PULSE 88; RESP 18; TEMP 36.6; O2SAT 97; BMI 29.2
--- NOTE | 2023-10-03 07:09 | W.ED.EXTPRO ---
HPI - Extremity Problem General: Chief complaint: Extremity Injury, Lower Stated complaint: left ankle injury Time Seen by Provider: 10/03/23 06:29 History of Present Illness: 72-year-old female presents emergency room complaining of increasing left ankle pain over the last several weeks. Over 1 month ago she had a left knee arthroplasty. She feels like the ankle discomfort is due to compensating for her knee. No specific injury to the left ankle. She localizes most of the painful lateral portion. She is still able to bear weight but reports it is quite uncomfortable. No swelling of the lower extremities no shortness of breath or chest pain. Associated symptoms: Deny chest pain, fever(s) or rash Related Data Home Medications Medication Instructions Recorded Confirmed acetaminophen 500 mg tablet 500 mg PO Q6H PRN Pain 10/29/22 08/28/23 (Tylenol Extra Strength) aspirin 81 mg tablet,delayed 81 mg PO DAILY 10/29/22 08/28/23 release cetirizine 10 mg tablet (Aller-Jaki) 10 mg PO DAILY PRN ALLERGIES 10/29/22 08/28/23 esomeprazole magnesium 20 mg 20 mg PO DAILY PRN Acid Reflux 10/29/22 08/28/23 capsule,delayed release levothyroxine 100 mcg tablet 100 mcg PO DAILY 10/29/22 08/28/23 lisinopril 10 mg tablet 10 mg PO DAILY 10/29/22 08/28/23 magnesium citrate 100 mg capsule 100 mg PO DAILY PRN Constipation 10/29/22 08/28/23 metoprolol succinate 25 mg 25 mg PO DAILY 10/29/22 08/28/23 tablet,extended release 24 hr [id number] 8 mg-folic 400 1 tab PO DAILY 10/29/22 08/28/23 mcg-K 50 mcg-lutein 300 mcg tablet (Centrum Silver Women) ranolazine 500 mg tablet,extended 500 mg PO BID 10/29/22 08/28/23 release,12 hr atorvastatin 40 mg tablet 40 mg PO DAILY 08/28/23 08/28/23 ergocalciferol (vitamin D2) 1,250 1,250 mcg PO Q7D 08/28/23 08/28/23 mcg (50,000 unit) capsule ondansetron 8 mg disintegrating 8 mg PO TID PRN Nausea 08/28/23 08/28/23 tablet temazepam 30 mg capsule 30 mg PO BEDTIME 08/28/23 08/28/23 venlafaxine 150 mg 150 mg PO DAILY 08/28/23 08/28/23 capsule,extended release 24 hr Previous Rx's Medication Instructions Recorded furosemide 20 mg tablet (Lasix) 20 mg PO DAILY PRN weight gain #60 08/28/23 tabs hydrocodone 5 mg-acetaminophen 325 1 tab PO DAILY PRN pain #5 tabs 08/28/23 mg tablet potassium chloride 10 mEq 10 meq PO DAILY PRN with lasix 08/28/23 tablet,extended release only #30 tabs diclofenac sodium 75 mg 75 mg PO Q12H PRN pain #20 tabs 10/03/23 tablet,delayed release Allergies Allergy/AdvReac Type Severity Reaction Status Date / Time phentermine Allergy Unknown Verified 08/27/23 17:48 arithromycin Allergy makes her Uncoded 08/27/23 17:47 throw up morphine Allergy vomit Uncoded 08/27/23 17:47 Review of Systems Const: Denies: fever(s) or chills Card: Denies: chest pain Resp: Denies: dyspnea GI: Denies: abdominal pain : Denies: dysuria, urinary frequency or urinary urgency Musc: Reports: joint pain; Denies: neck pain, back pain, joint swelling or joint redness Skin/Breast: Denies: rash PFSH ED PFSH: Medical History AMS (altered mental status) Hypoxia New onset of congestive heart failure Insomnia Urge incontinence Diverticulitis CAD (coronary artery disease) HTN (hypertension) with goal to be determined Hypothyroid High cholesterol Meniere disease Bursitis Normal colonoscopy Surgical History History of bladder suspension procedure prolapsed uterus S/P removal of right ovary History of ankle surgery Family History Father Diabetes Stroke Mother FH: mental illness Social History Smoking and tobacco/nicotine status: former use of tobacco/nicotine Quit status (tobacco/nicotine): has quit using Second hand smoke exposure: No Alcohol intake: current Alcohol intake frequency: few times a month Alcohol type: beer Substance/Drug Use: current Substance/Drug use frequency: daily Physical Exam Const: COMMON NORMALS: no acute distress GENERAL APPEARANCE: cooperative ORIENTATION/CONSCIOUSNESS: Yes awake, Yes oriented to person, Yes oriented to place and Yes oriented to time HENMT: COMMON NORMALS: normocephalic, atraumatic and hearing grossly normal bilaterally HEAD & SCALP: normocephalic and atraumatic Extremity: COMMON NORMALS: normal to inspection, capillary refill normal, no clubbing, cyanosis or edema, no calf tenderness and no pedal edema OTHER: Examination left ankle dorsalis pedis pulse posterior tibialis pulse easily palpable normalities. Normal appearance no obvious deformities no swelling neurovascularly intact dorsum plantarflex strength 5/5 with moderate discomfort Neuro: SENSORIUM/ORIENTATION: Yes oriented to person, Yes oriented to place and Yes oriented to time Skin: COMMON NORMALS: no rashes or lesions noted GENERAL SKIN EXAM: no rashes or lesions noted Course Vital Signs: Vital signs: Vital Signs Temperature 98 F 10/03/23 06:31 Pulse Rate 88 10/03/23 06:31 Respiratory Rate 18 10/03/23 06:31 Blood Pressure 126/46 10/03/23 08:13 Pulse Oximetry 97 10/03/23 06:31 MDM - Extremity (Nontraumatic) Medical Decision Making Patient refers all of her pain of lateral malleolus. No history of trauma. On x-ray no significant findings no fracture on physical exam there is also no finding. Discharge patient home nonweightbearing refer to podiatry for further evaluation Lab Data Radiology Impressions Ankle X-Ray 10/03/23 06:29 IMPRESSION: No acute fracture or dislocation. All radiology interpretation(s) finalized by discharge Discharge Plan Discharge Patient Disposition: Home Clinical Impression: Acute left ankle pain Condition: Stable Prescriptions: New diclofenac sodium 75 mg tablet,delayed release (DR/EC) 75 mg PO Q12H PRN (Reason: pain) Qty: 20 0RF No Action metoprolol succinate 25 mg tablet extended release 24 hr 25 mg PO DAILY aspirin 81 mg tablet,delayed release (DR/EC) 81 mg PO DAILY ranolazine 500 mg tablet extended release 12 hr 500 mg PO BID lisinopril 10 mg tablet 10 mg PO DAILY levothyroxine 100 mcg tablet 100 mcg PO DAILY esomeprazole magnesium 20 mg capsule,delayed release(DR/EC) 20 mg PO DAILY PRN (Reason: Acid Reflux) cetirizine [Aller-Jaki] 10 mg tablet 10 mg PO DAILY PRN (Reason: ALLERGIES) acetaminophen [Tylenol Extra Strength] 500 mg tablet 500 mg PO Q6H PRN (Reason: Pain) Centrum Silver Women 8 mg iron-400 mcg-50 mcg tablet 1 tab PO DAILY magnesium citrate 100 mg capsule 100 mg PO DAILY PRN (Reason: Constipation) atorvastatin 40 mg tablet 40 mg PO DAILY venlafaxine 150 mg capsule,extended release 24hr 150 mg PO DAILY ondansetron 8 mg tablet,disintegrating 8 mg PO TID PRN (Reason: Nausea) temazepam 30 mg capsule 30 mg PO BEDTIME ergocalciferol (vitamin D2) 1,250 mcg (50,000 unit) capsule 1,250 mcg PO Q7D Lasix 20 mg tablet 20 mg PO DAILY PRN (Reason: weight gain) Qty: 60 1RF Rx Instructions: take as needed for shortness of breath or weight gain>3lbs in 24 hrs potassium chloride 10 mEq tablet extended release 10 meq PO DAILY PRN (Reason: with lasix only) Qty: 30 0RF hydrocodone-acetaminophen 5-325 mg tablet 1 tab PO DAILY PRN (Reason: pain) Qty: 5 0RF Discharge Orders: Discharge ED (Routine); Ordered 10/03/23 Ordered By: Enrique Bass Referrals: Bill Riggins DO [Primary Care Provider] - Discharge Diet: Usual diet Discharge Activity: Resume usual activity Patient Instructions: Opioid Safety, Pain Management Activity Restrictions/Additional Instructions: Thank you for choosing [facility] for your healthcare needs today. It is very important that you follow up as instructed or that you return to the Emergency Department should you have concerns or if your condition changes or worsens in any way. You were seen today with complaint of left ankle pain x-ray did not show any acute abnormalities. Examination of the ankle is unremarkable. There is no sign of infection no sign of fracture. Recommend nonweightbearing with crutches and will have you follow-up with podiatry. This management will make arrangements for the consultation. Coding Level of Care Code [employer] Faculty Member for You José
--- NOTE | 2023-10-03 08:11 | PC.NURSE ---
Patient refused crutches, she brought her walker from home that she used after her knee surgery because she has been using it for the last week. Patient did attempt to try the crutches but found them too difficult to manuever. Patient states that she will be able to not bear weight on her left leg while using her walker.
[2023-10-03 08:13] VITALS: BP 126/46
--- NOTE | 2023-10-05 07:52 | DCPLANNER ---
messaged podiatry for er f/u
== END 2023-10-03 08:14 | disposition home or self-care (01) ==
PROVIDERS: Emergency Provider Family Medicine; PCP Electrodiagnostic Medicine
DX: M25.572 Pain in left ankle and joints of left foot (principal); Z79.82 Long term (current) use of aspirin; I11.0 Hypertensive heart disease with heart failure; I50.9 Heart failure, unspecified; I25.10 Atherosclerotic heart disease of native coronary artery without angina pectoris; Z87.891 Personal history of nicotine dependence
CPT/HCPCS: 73610; 99283

== ENCOUNTER → 2023-10-16 07:51 | Outpatient (BNVA) | payer MEDICARE, SELFPAY | PROVIDERS: PCP Electrodiagnostic Medicine; Visit Provider Podiatrist Foot & Ankle Surgery | DX: M25.872 Other specified joint disorders, left ankle and foot; M21.70 Unequal limb length (acquired), unspecified site; M21.062 Valgus deformity, not elsewhere classified, left knee; M76.822 Posterior tibial tendinitis, left leg | CPT/HCPCS: 99203 ==

== ENCOUNTER → 2024-04-26 13:57 | Outpatient (BNVA) | payer MEDICARE, SELFPAY | PROVIDERS: PCP Electrodiagnostic Medicine; Visit Provider Podiatrist Foot & Ankle Surgery | DX: M25.572 Pain in left ankle and joints of left foot (principal); M21.062 Valgus deformity, not elsewhere classified, left knee; M76.822 Posterior tibial tendinitis, left leg; M25.872 Other specified joint disorders, left ankle and foot; M21.70 Unequal limb length (acquired), unspecified site | CPT/HCPCS: 73610; 99213 ==

== ENCOUNTER → 2024-06-08 09:13 | Outpatient (BNVA) | payer MEDICARE, SELFPAY | PROVIDERS: PCP Electrodiagnostic Medicine; Visit Provider Student in an Organized Health Care Education/Training Program | DX: M25.562 Pain in left knee (principal); Z96.652 Presence of left artificial knee joint; M17.11 Unilateral primary osteoarthritis, right knee | CPT/HCPCS: 73560; 73565; 99204 ==

== ENCOUNTER → 2024-11-09 11:21 | Outpatient (BNVA) | payer MEDICARE, SELFPAY | PROVIDERS: PCP Electrodiagnostic Medicine; Referring Provider Electrodiagnostic Medicine; Visit Provider Internal Medicine Rheumatology | DX: M06.041 Rheumatoid arthritis without rheumatoid factor, right hand (principal); M25.50 Pain in unspecified joint; E78.00 Pure hypercholesterolemia, unspecified; M81.0 Age-related osteoporosis without current pathological fracture; M06.042 Rheumatoid arthritis without rheumatoid factor, left hand; M62.81 Muscle weakness (generalized); Z79.899 Other long term (current) drug therapy; Z71.85 Encounter for immunization safety counseling; M15.9 Polyosteoarthritis, unspecified | CPT/HCPCS: 36415; 73130; 73630; 82085; 82306; 82550; 82565; 82607; 82746; 84439; 84443; 85025; 86140; 86480; 86704; 86803; 87340; 99205 ==

== ENCOUNTER 2024-12-09 11:30 | Outpatient (CLI) | payer MEDICARE, SELFPAY ==
[2024-12-09 12:10] LABS: Hematocrit 41.0 % (36-47); Hemoglobin 13.00 g/dL (11.27-16.99); Mean Corpuscular HGB Conc 31.7 g/dL (30-55); Mean Corpuscular Hemoglobin 29.5 pg (27-33); Mean Corpuscular Volume 93.0 fl (85-98); Nucleated Red Blood Cells % 0 %; Platelet Count 255 10^3/cmm (157-399); Red Blood Count 4.41 10^6/uL (3.85-5.65); White Blood Count 5.44 10^3/uL (3.29-11.43)
[2024-12-09 12:35] LABS: Alanine Aminotransferase 17 U/L (0-33); Albumin Level 3.7 g/dL (3.5-5.2); Alkaline Phosphatase 100 U/L (35-105); Aspartate Amino Transferase 13 U/L (0-32); Globulin 3.2 g/dL (1.3-4.6); Total Protein 6.9 g/dL (6.6-8.7)
== END 2024-12-09 11:31 | disposition home or self-care (01) ==
LOC: LAB 11:33
PROVIDERS: PCP Electrodiagnostic Medicine; Visit Provider Internal Medicine Rheumatology
DX: Z79.899 Other long term (current) drug therapy (principal)
CPT/HCPCS: 36415; 80076; 82565; 85025; 85651; 86140

== ENCOUNTER 2025-01-03 19:59 | Outpatient (CLI) | payer MEDICARE, SELFPAY | END 2025-01-03 20:00 | disposition home or self-care (01) | LOC: SLEEP 20:00 | PROVIDERS: Family Provider Electrodiagnostic Medicine; PCP Electrodiagnostic Medicine; Visit Provider Internal Medicine Pulmonary Disease | DX: G47.33 Obstructive sleep apnea (adult) (pediatric) (principal) | CPT/HCPCS: 95811 ==

== ENCOUNTER 2025-01-20 12:29 | Outpatient (CLI) | payer MEDICARE, SELFPAY ==
[2025-01-20 13:33] LABS: Hematocrit 45.1 % (36-47); Hemoglobin 14.30 g/dL (11.27-16.99); Mean Corpuscular HGB Conc 31.7 g/dL (30-55); Mean Corpuscular Hemoglobin 29.1 pg (27-33); Mean Corpuscular Volume 91.7 fl (85-98); Nucleated Red Blood Cells % 0 %; Platelet Count 246 10^3/cmm (157-399); Red Blood Count 4.92 10^6/uL (3.85-5.65); White Blood Count 8.94 10^3/uL (3.29-11.43)
[2025-01-20 14:01] LABS: Alanine Aminotransferase 14 U/L (0-33); Albumin Level 4.0 g/dL (3.5-5.2); Alkaline Phosphatase 93 U/L (35-105); Aspartate Amino Transferase 13 U/L (0-32); Globulin 2.7 g/dL (1.3-4.6); Total Protein 6.7 g/dL (6.6-8.7)
== END 2025-01-20 12:30 | disposition home or self-care (01) ==
LOC: LAB 12:30
PROVIDERS: Family Provider Electrodiagnostic Medicine; PCP Electrodiagnostic Medicine; Visit Provider Internal Medicine Rheumatology
DX: Z79.899 Other long term (current) drug therapy (principal)
CPT/HCPCS: 36415; 80076; 82565; 85025; 85651; 86140